=== PATIENT | male | born 1975 ===

== ENCOUNTER 2021-05-03 14:57 | Emergency (ER) | payer OTHER ==
[~2021-05-03] VITALS: Ht 180.3 cm; Wt 110.2 kg
[2021-05-03 15:03] VITALS: BP 142/91
[2021-05-03 15:49] LABS: Urine Bacteria NONE SEEN /hpf (None Seen); Urine Blood 3+ /uL (Negative); Urine WBC 173 /hpf (0 - 3)
[2021-05-03 15:51] LABS: Urine Specific Gravity 1.024 (1.001-1.035)
[2021-05-03] MEDS ORDERED: KETOROLAC TROMETH 60MG/2ML VIAL IM ONE (16:45)
[2021-05-03 16:59] LABS: Basophils # (auto) 0 10 ^3/uL (0-0.2); Basophils % (auto) 0.3 % (0.0-2.0); Eosinophils # (auto) 0.1 10 ^3/uL (0-0.8); Hematocrit 40.8 % (41.0-53.0); Hemoglobin 13.2 g/dL (13.5-17.5); Lymphocytes # (auto) 1.8 10 ^3/uL (0.4-5.4); Lymphocytes % (auto) 12.2 % (10.0-50.0); Mean Corpuscular Hemoglobin 30.5 pg (28.0-32.0); Mean Corpuscular Hgb Conc. 32.4 g/dL (32.0-36.0); Monocytes % (auto) 6.8 % (0.0-12.0); Neutrophils # (auto) 11.8 10 ^3/uL (1.6-8.6); Neutrophils % (auto) 79.7 % (37.0-80.0); Red Blood Cells 4.34 10^6/uL (4.5-5.90); Red Cell Distribution Width 12.7 % (11.8-14.3); White Blood Cell 14.8 10^3/uL (4.4-10.8)
[2021-05-03 17:13] LABS: Calcium 8.9 mg/dL (8.5-10.1)
[2021-05-03 17:18] LABS: BUN/Creatinine Ratio 21.6; Bilirubin, Total 0.8 mg/dL (0.2-1.0)
[2021-05-03] MEDS ORDERED: levoFLOXacin 500 MG TAB PO ONE (23:00)
== END 2021-05-03 22:51 | disposition left against medical advice (07) ==
LOC: ER 14:57
DX: R10.9 Unspecified abdominal pain (principal); M54.59 Other low back pain; R30.0 Dysuria; Z53.29 Procedure and treatment not carried out because of patient's decision for other reasons
CPT/HCPCS: 36415; 80053; 81001; 85025